=== PATIENT | male | born 1980 | race Caucasian/White ===

== ENCOUNTER 2018-09-06 17:30 | Emergency (ER) | payer OTHER ==
[~2018-09-06] VITALS: Ht 167.6 cm; Wt 59.1 kg
[2018-09-06] MEDS ORDERED: KETOROLAC TROMETHAMINE 10 MG TAB PO ONE (18:30)
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
[2018-09-06 19:25] VITALS: BP 132/93
[2018-09-06] MEDS ORDERED: LIDOCAINE 2% MDV 20 ML VIAL SC ONE (19:45)
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
== END 2018-09-06 20:42 | disposition home or self-care (01) ==
LOC: M ED 17:30
DX: S01.411A Laceration without foreign body of right cheek and temporomandibular area, initial encounter (principal); S20.211A Contusion of right front wall of thorax, initial encounter; S05.11XA Contusion of eyeball and orbital tissues, right eye, initial encounter; V86.52XA Driver of snowmobile injured in nontraffic accident, initial encounter; Y92.9 Unspecified place or not applicable; Y93.9 Activity, unspecified; Y99.9 Unspecified external cause status; Q78.0 Osteogenesis imperfecta; Z88.0 Allergy status to penicillin

== ENCOUNTER 2018-09-12 21:24 | Emergency (ER) | payer OTHER ==
[~2018-09-12] VITALS: Ht 167.6 cm; Wt 59.1 kg
[2018-09-12 21:24] VITALS: BP 139/91
== END 2018-09-12 22:00 | disposition home or self-care (01) ==
LOC: M ED 21:24
DX: Z48.02 Encounter for removal of sutures (principal); Z88.0 Allergy status to penicillin

== ENCOUNTER 2021-01-01 08:04 | Emergency (ER) | payer OTHER ==
[~2021-01-01] VITALS: Ht 170.2 cm; Wt 57.4 kg
[2021-01-01] MEDS ORDERED: KETOROLAC 60MG 2ML VIAL IM ONE (09:05)
--- NOTE | 2021-01-01 09:10 | REP ---
INDICATION: left testicle pain COMPARISON: None. TECHNIQUE: Mckeon scale and color Doppler evaluation using linear and curved array transducer with color Doppler evaluation. FINDINGS: The left testicle appears mildly increased in vascularity suggesting orchitis. The testicle itself also includes a small 2 x 3 x 2 mm nonspecific anechoic structure suggesting complex cyst along with 5 x 2 x 3 mm epididymal head cyst. Left testicle measures 3.6 x 1.8 x 2.4 cm. No hydrocele. No varicocele. The right testicle/epididymis appears normal and measures 3.5 x 1.6 x 2.3 cm. No hydrocele. No varicocele. IMPRESSION: Findings suggest very mild/early left orchitis. <Electronically signed by Jett Amador > 01/01/21 0999
[2021-01-01] MEDS ORDERED: IBUP80TA PO (09:49)
[2021-01-01 10:18] VITALS: BP 127/77
== END 2021-01-01 10:19 | disposition home or self-care (01) ==
LOC: M ED 08:04
DX: N45.2 Orchitis (principal); F17.210 Nicotine dependence, cigarettes, uncomplicated; Z88.0 Allergy status to penicillin
CPT/HCPCS: 76870; 81001; 87490; 87590; 93976; 96372; 99283; J1885

== ENCOUNTER → 2022-12-12 | Outpatient (CLI) | payer OTHER ==
[~2022-12-12] MED LIST: IBUP80TA PO
== END ==
LOC: M WUC 12:47
PROVIDERS: ATTEND Student in an Organized Health Care Education/Training Program
DX: M25.562 Pain in left knee (principal)